=== PATIENT | female | born 1955 | race Caucasian/White ===

== ENCOUNTER → 2016-11-20 | Outpatient (CLI) | payer MEDICARE, OTHER ==
[~2016-11-20] MED LIST: ADVAIR 2501 DISK W/D PO; AMITRIPTYLINE H25 MG PO; BAYER ASPIRIN325 M1 PO; CITRACAL PLUS T1 TAB PO; CLARITIN10 M2 PO; CLARITIN10 MG PO; COLACE PO; COUMADIN PO; DEXILANT30 MG PO; DICLOFENAC PO; DIOVAN PO; DIOVAN160 MG PO; ESCITALOPRAM OX10 MG PO; LEXAPRO PO; LIPITOR40 MG PO; MILK OF MAGNESIA PO; NORCO 10-325 TA1 TAB PO; NORCO 5/325 TAB1 TAB PO; OMEPRAZOLE40 M1 PO; PRAVACHOL PO; PREVACID PO; SINGULAIR PO; VOLTAREN50 MG PO
--- NOTE | ~2016-11-20 | US136 ---
[facility] A Service of [facility] RADIOLOGY TEXT RESULTS PATIENT: KATYA CHEUNG LOCATION: CNIV : 51 UNIT #: [id number] AGE: [address]: Rob Cobian MD SEX: F ORDER DR: [id number] [facility] [address] [place], [place] [address] [id number] O MR#: [id number] Acc #: [id number] NAME: KATYA CHEUNG : 1955 SEX: F STUDY DATE/TIME: 11/20/2016 14:01 UNIT: CNIV ROOM: STUDY DESCRIPTION: U/L Ext [employer] Bilat Attending Physician: Rob Price M.D. Referring Physician: Rob Price M.D. Ordering Physician: Rob Price M.D. Primary Care Physician: Rob Price M.D. MEDICAL IMAGING REPORT This report is preliminary unless electronic signature is present DATE OF EXAM 11/20/2016 REASON FOR EXAM Skin discoloration. EXAM Bilateral lower extremity SEBASTIAN. FINDINGS The right brachial pressure is 125, left is 113, right dorsalis pedis pressure is 122 and posterior tibial 135, for an SEBASTIAN of 1.08 and a first toe pressure of 73 mmHg. Left dorsalis pedis pressure is 117 and posterior tibial is 106, for an SEBASTIAN of 0.94 and a first toe pressure of 73 mmHg. PVR waveform at the ankle level as well as first toe level are intact, normal, and symmetric bilateral. Arterial waveforms of the dorsalis pedis and posterior tibial arteries are triphasic bilateral. IMPRESSION No arterial insufficiency in either the right or the left lower extremity with adequate perfusion of the first toes. Dictated by... Shlomo Briceño M.D. THIS IS AN ELECTRONICALLY VERIFIED REPORT Shlomo Briceño M.D. at 11/23/2016 11:04 AM Hernán TD: 11/20/2016 20:58 JOB #: [id number] [facility] A Service of [facility] RADIOLOGY TEXT RESULTS PATIENT: KATYA CHEUNG LOCATION: CNIV : 53 UNIT #: [id number] AGE: [address]: Rob Cobian MD SEX: F ORDER DR: MEDICAL IMAGING REPORT Page 1 of 1 COPY
== END | disposition home or self-care (01) ==
LOC: CNIV 13:52
DX: R09.89 Other specified symptoms and signs involving the circulatory and respiratory systems (principal); L81.9 Disorder of pigmentation, unspecified
CPT/HCPCS: 93922